=== PATIENT | female | born 2000 | race Hispanic/Latino ===

== ENCOUNTER 2021-10-18 07:18 | Day surgery (SDC) | payer BC, OTHER ==
[2021-10-18] MEDS ORDERED: Midazolam HCl 2 mg/2 ml Vial ONE ×2 (09:10→09:42)
[2021-10-18] MEDS ORDERED: fentaNYL Citrate/PF 100 MCG/2 ML SYRINGE ONE ×2 (09:42→10:06)
[2021-10-18] MEDS ORDERED: Bupivacaine/Epinephrine 0.25% 30 ML VIAL ONE (09:47)
[2021-10-18] MEDS ORDERED: Esmolol 100 MG/10 ML VIAL ONE (10:05)
[2021-10-18] MEDS ORDERED: Succinylcholine 200 MG/10 ml SYRINGE FS ONE (10:05)
[2021-10-18] MEDS ORDERED: Ondansetron PF 4 MG/2 ML Vial ONE (10:05)
[2021-10-18] MEDS ORDERED: Glycopyrrolate 0.2 MG/ML 5 ML SYRINGE ONE (10:05)
[2021-10-18] MEDS ORDERED: PROPOFOL 200 MG/20 ML VIAL ONE (10:05)
[2021-10-18] MEDS ORDERED: Lidocaine 1% PF 5 ML VIAL ONE (10:05)
[2021-10-18] MEDS ORDERED: Ketorolac Tromethamine 30 MG/ML VIAL ONE (10:05)
[2021-10-18] MEDS ORDERED: Rocuronium Bromide 10 MG/ML (10ML VIAL) ONE (10:05)
== END 2021-10-18 13:04 | disposition home or self-care (01) ==
LOC: SDC 07:18
PROVIDERS: ATTEND Surgery
PROC: 0DTJ4ZZ Resection of Appendix, Percutaneous Endoscopic Approach (ICD-10-PCS; principal; 2021-10-18)
DX: K35.80 Unspecified acute appendicitis (principal); Z88.2 Allergy status to sulfonamides
CPT/HCPCS: 88304; A4649; J1885; J2250; J2405; J2704